=== PATIENT | male | born 1985 | race Two or more races ===

== ENCOUNTER 2025-03-10 20:45 | Emergency (ER) | payer MEDICAID, OTHER ==
[~2025-03-10] VITALS: Ht 182.9 cm; Wt 104.0 kg
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
[2025-03-10 21:20] LABS: Chloride 106 mmol/L (98-107); Potassium 3.7 mmol/L (3.5-5.1); Sodium 140 mmol/L (136-145)
[2025-03-10 21:21] LABS: Anion Gap 12 (5-15); Calcium 10.1 mg/dL (8.7-10.4); Carbon Dioxide 22 mmol/L (20-31)
[2025-03-10 21:26] LABS: BUN/Creatinine Ratio 6.8 (10.0-20.0); Blood Alcohol 93.5 mg/dL (<10); Glucose 84 mg/dL (74-106); Monocytes # (auto) 0.4 10 ^3/uL (0-1.3); White Blood Cell 7.1 10^3/uL (4.4-10.8)
[2025-03-10 21:27] LABS: Basophils # (auto) 0.1 10 ^3/uL (0-0.2); Basophils % (auto) 0.9 % (0.0-2.0); Eosinophils # (auto) 0.1 10 ^3/uL (0-0.8); Eosinophils % (auto) 0.8 % (0.0-7.0); Hematocrit 53.7 % (41.0-53.0); Hemoglobin 19.3 g/dL (13.5-17.5); Lymphocytes # (auto) 2.9 10 ^3/uL (0.4-5.4); Lymphocytes % (auto) 40.3 % (10.0-50.0); Mean Corpuscular Hgb Conc. 35.9 g/dL (32.0-36.0); Mean Corpuscular Volume 94.9 fL (80.0-100.0); Monocytes % (auto) 5.2 % (0.0-12.0); Neutrophils # (auto) 3.8 10 ^3/uL (1.6-8.6); Neutrophils % (auto) 52.8 % (37.0-80.0); Nucleated Red Blood Cells % 0.6 %; Platelet Count (auto) 236 10^3/uL (140-450); Red Blood Cells 5.66 10^6/uL (4.5-5.90)
[2025-03-10 21:34] LABS: Blood Urea Nitrogen 5 mg/dL (9-23)
[2025-03-10 21:36] LABS: Salicylate < 3.0 mg/dL (-30)
[2025-03-10 22:07] LABS: Acetaminophen < 2.0 UG/ML (10.0-20.0)
[2025-03-10 23:35] VITALS: BP 148/86; PULSE 106; RESP 16; TEMP 97.9; O2SAT 99
== END 2025-03-11 00:26 | disposition home or self-care (01) ==
LOC: EDBD 20:45 → ER 20:45
DX: F10.129 Alcohol abuse with intoxication, unspecified (principal); Y90.9 Presence of alcohol in blood, level not specified
CPT/HCPCS: 36415; 80048; 80320; 80329; 85025

== ENCOUNTER 2025-08-05 00:53 | Emergency (ER) | payer MEDICAID ==
[~2025-08-05] VITALS: Ht 182.9 cm; Wt 114.0 kg
[2025-08-05 00:54] VITALS: BP 139/85; PULSE 74; RESP 16; TEMP 98.2; O2SAT 98
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
[2025-08-05] MEDS ORDERED: IBUP-1455 PO (02:20)
[2025-08-05] MEDS ORDERED: HYDR-4902 PO (02:20)
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
[2025-08-05] MEDS: KETOROLAC TROMETH 60MG/2ML VIAL IM ONE (03:44)
[2025-08-05] MEDS: HYDROcodone-ACET 10/325MG TAB PO ONE (03:44)
== END 2025-08-05 03:48 | disposition home or self-care (01) ==
LOC: ER 00:53
DX: S20.219A Contusion of unspecified front wall of thorax, initial encounter (principal); F10.90 Alcohol use, unspecified, uncomplicated; Y08.89XA Assault by other specified means, initial encounter; Y93.89 Activity, other specified; Y92.89 Other specified places as the place of occurrence of the external cause; Y99.8 Other external cause status; Y90.9 Presence of alcohol in blood, level not specified
CPT/HCPCS: 71101; 96372; 99283; J1885